=== PATIENT | male | born 1965 | race Caucasian/White ===

== ENCOUNTER 2022-07-20 08:39 | Day surgery (SDC) | payer MEDICARE, MEDICAID, SELFPAY ==
--- NOTE | 2022-07-19 14:17 | HO.ANESPROP2 ---
Documented by User: Darcy Lujan NP 07/19/22 14:18 HPI - Anesthesia Eval Consult details Narrative: 57yo M for Colonoscopy PMFSH Past Medical History Medical History Cerebral palsy Chronic constipation Hydrocephalus Intellectual disability Scoliosis Urine incontinence VJ (ventriculojugular) shunt status Surgical History Surgical History (Updated 07/20/22 @ 10:54 by Amparo Vidal MD) H/O colonoscopy History of surgery Social History Social History Patient Tobacco Use Status: Never used Tobacco Use of substances other than those prescribed or required for medical reasons: No Are you DNR?: No Advance Directives: No Advance Directives Information Provided: Yes Meds Allergies Allergy/AdvReac Type Severity Reaction Status Date / Time cranberry Allergy Unknown Unknown Verified 07/19/22 14:18 Home Medications Medication Instructions Recorded Confirmed Last Taken Type acetaminophen 500 mg tablet mg PO 07/20/22 Unknown History acetic acid 2 % ear solution otic (ears) 07/20/22 Unknown History betamethasone dipropionate 0.05 % 1 applic topical BID 07/20/22 Unknown History topical cream betamethasone dipropionate 0.05 % 1 applic topical BID 07/20/22 Unknown History topical cream cetirizine 10 mg tablet 1 tab PO DAILY 07/20/22 07/20/22 History diazepam 10 mg tablet 1 tab PO DAILY PRN Anxiety 07/20/22 Unknown History diphenhydramine HCl 25 mg capsule mg PO 07/20/22 Unknown History (Banophen) docusate sodium 100 mg capsule mg PO 07/20/22 Unknown History fluocinolone 0.01 % topical topical 07/20/22 Unknown History solution fluticasone propionate 50 spray intranasal 07/20/22 07/20/22 History mcg/actuation nasal spray,suspension hydrocortisone 2.5 % topical cream applic topical 07/20/22 Unknown History with perineal applicator magnesium hydroxide 400 mg/5 mL ml PO 07/20/22 Unknown History oral suspension (Milk of Magnesia) omeprazole 20 mg capsule,delayed 1 cap PO DAILY 07/20/22 07/20/22 History release peg 3350 240 gram-electrolytes ml PO 07/20/22 Unknown History 22.72 gram-6.72 g-5.84 g powdr for soln (Gavilyte-C) sennosides 8.6 mg tablet (senna) 2 tab PO DAILY 07/20/22 Unknown History Exam Exam Date and Time: July 19, 2022 1417 Assessment and Plan Assessment Anesthesia Assessment: Chart Reviewed Documented by User: Amparo Vidal MD 07/20/22 11:38 PMFSH Past Medical History Medical History Cerebral palsy Chronic constipation Hydrocephalus Intellectual disability Scoliosis Urine incontinence VJ (ventriculojugular) shunt status Family History Family history of problems with anesthesia: No Surgical History Surgical History (Updated 07/20/22 @ 10:54 by Amparo Vidal MD) H/O colonoscopy History of surgery History of Problems with Anesthesia: No Social History Social History Patient Tobacco Use Status: Never used Tobacco Use of substances other than those prescribed or required for medical reasons: No Are you DNR?: No Advance Directives: No Advance Directives Information Provided: Yes Meds Allergies Allergy/AdvReac Type Severity Reaction Status Date / Time cranberry Allergy Unknown Unknown Verified 07/19/22 14:18 Home Medications Medication Instructions Recorded Confirmed Last Taken Type acetaminophen 500 mg tablet mg PO 07/20/22 Unknown History acetic acid 2 % ear solution otic (ears) 07/20/22 Unknown History betamethasone dipropionate 0.05 % 1 applic topical BID 07/20/22 Unknown History topical cream betamethasone dipropionate 0.05 % 1 applic topical BID 07/20/22 Unknown History topical cream cetirizine 10 mg tablet 1 tab PO DAILY 07/20/22 07/20/22 History diazepam 10 mg tablet 1 tab PO DAILY PRN Anxiety 07/20/22 Unknown History diphenhydramine HCl 25 mg capsule mg PO 07/20/22 Unknown History (Banophen) docusate sodium 100 mg capsule mg PO 07/20/22 Unknown History fluocinolone 0.01 % topical topical 07/20/22 Unknown History solution fluticasone propionate 50 spray intranasal 07/20/22 07/20/22 History mcg/actuation nasal spray,suspension hydrocortisone 2.5 % topical cream applic topical 07/20/22 Unknown History with perineal applicator magnesium hydroxide 400 mg/5 mL ml PO 07/20/22 Unknown History oral suspension (Milk of Magnesia) omeprazole 20 mg capsule,delayed 1 cap PO DAILY 07/20/22 07/20/22 History release peg 3350 240 gram-electrolytes ml PO 07/20/22 Unknown History 22.72 gram-6.72 g-5.84 g powdr for soln (Gavilyte-C) sennosides 8.6 mg tablet (senna) 2 tab PO DAILY 07/20/22 Unknown History Exam Height,Weight and Vital Signs: Height 5 ft Weight 75.296 kg Vital Signs Temp Pulse Resp BP Pulse Ox O2 Del Method 07/20/22 10:07 97.0 F 67 16 143/85 H 95 Room Air Narrative Narrative: Unable to assess airway. Patient will not open mouth Airway TM Dist: >3cm (Short fat neck) Heart: RRR Lungs: CTAB Assessment and Plan Assessment Anesthesia Assessment: Anesthesia Plan Discussed (Plan discussed with patient's sister(HCP)) Final Anesthetic Review Family History of Problems with Anesthesia: No History of Problems with Anesthesia: No NPO: Yes ASA Class: III Final Preanesthetic Review: No Changes in Pt Med Stat, Meds/Allgs Chart Reviewed, Consent Obtained/Reviewed and Anes Risks/Benef Reviewed Patient Risk: Intermediate Procedure Risk: Low Assessment/Block/Sedation in SS: Assess/Block/Sedation-SS Anesthetic Plan Anesthetic Plan: MAC: Disposition: Standard PACU
[2022-07-20 09:51] VITALS: BMI 32.4
[2022-07-20 10:07] VITALS: BP 143/85; PULSE 67; RESP 16; TEMP 36.1; O2SAT 95
[2022-07-20] MEDS: Lactated Ringers 1,000 ML 100 ML IVCONT (10:32)
--- NOTE | 2022-07-20 10:45 | MHC.SHP ---
Pre-Procedural Eval Section A Date of Service: 07/20/22 The patient is an INPATIENT: No Changes since office visit: No Cold of Flu in the past 2 weeks, No New Medical Problems, No Changes in Medication and No Patient answered all questions The History & Physical has been completed within 30 days and I have reviewed it.: Yes Section B Chief Complaint: Encounter for screening for malignant neoplasm of Allergies: Allergies Allergy/AdvReac Type Severity Reaction Status Date / Time cranberry Allergy Unknown Unknown Verified 07/19/22 14:18 Plan I have reviewed the history and physical and performed a pertinent physical examination on my patient. No changes have occurred unless specified.
[2022-07-20 11:52] VITALS: BP 93/61; PULSE 71; RESP 18; TEMP 36.4; O2SAT 97
--- NOTE | 2022-07-20 11:52 | P.BOP_ITS ---
Brief Operative Note Date of Service: 07/20/22 Pre-op diagnosis: screening Post-op diagnosis: same Procedure: colonoscopy Surgeon: Donald Moreland Anesthesia: MAC Was an [employer] used for this Procedure?: No Estimated blood loss (mL): 5 Pathology: other Condition: stable Disposition: PACU
[2022-07-20 12:07] VITALS: BP 105/74; PULSE 59; RESP 18; TEMP 36.4; O2SAT 92
--- NOTE | 2022-07-20 12:20 | OP_ITS ---
SURGEON: Donald Moreland MD INDICATIONS: Colon cancer screening and prior history of adenomatous colon polyps. PREOPERATIVE DIAGNOSIS: POSTOPERATIVE DIAGNOSIS: PROCEDURE PERFORMED: Colonoscopy to the right colon with biopsy. ESTIMATED BLOOD LOSS: COMPLICATIONS: ANESTHESIA: Monitored anesthesia care. ASSISTANTS: SPECIMENS: DESCRIPTION OF PROCEDURE: The procedure was performed on 07/20/2022. History and physical performed. The risks and benefits of the procedure were explained to the patient's sister and informed consent was obtained. The patient was placed in the left lateral decubitus position. A digital rectal exam was performed and was found to be normal. The Olympus pediatric video colonoscope was introduced into the rectum and advanced to the right colon where further advancement was not possible due to looping in the colon and redundant sigmoid. Despite the application of abdominal wall pressure, examination was performed, the scope was removed. He tolerated the procedure well and was returned to the recovery area in stable condition. It is estimated that 80% of the colon was examined. FINDINGS: There was a large amount of liquid stool limiting the sensitivity examination for detection of small polyps. This was washed and suctioned as best possible. A single polyp measuring less than 5 mm was identified in the rectum at 15 cm, removed with the biopsy forceps. No other polyps were identified. Retroflexed examination showed moderately large internal hemorrhoids. IMPRESSION: Colon polyp. RECOMMENDATION: 1. Follow up the biopsy results. 2. Consider outpatient barium enema for further evaluation of the unexamined colon. This will be discussed with the patient's guardian. MD GILLIAN Jose/AMMY / [phone]
[2022-07-20 12:22] VITALS: BP 104/80; PULSE 59; RESP 18; TEMP 36.4; O2SAT 93
--- NOTE | 2022-07-20 12:28 | PC.NURSE ---
new IV started upon arrival to PACU by Carol Davies RN. Dr. Tolentino stated to bolus patient with fluids until BP improves. Pt received 300 ML LR by this time and good response with BP see documentation in VS intervention.
[2022-07-20 12:39] VITALS: BP 104/80; PULSE 63; RESP 18; TEMP 36.4; O2SAT 98
--- NOTE | 2022-07-20 13:51 | PC.NURSE ---
Caregiver, Linda, from [facility] with patient after procedure. reviewed all findings from procedure and f/u as instructed by dr. morales. She verbalized understanding.
== END 2022-07-20 13:30 | disposition home or self-care (01) ==
PROVIDERS: PCP Family Medicine; Visit Provider Internal Medicine Gastroenterology
PROC: 0DJD8ZZ Inspection of Lower Intestinal Tract, Via Natural or Artificial Opening Endoscopic (ICD-10-PCS; CPT 45378; principal; 2022-07-20 09:50)
DX: Z12.11 Encounter for screening for malignant neoplasm of colon (principal); Z86.010 Personal history of colon polyps; Z83.71 Family history of colonic polyps; K62.1 Rectal polyp; K64.8 Other hemorrhoids; K59.09 Other constipation; G80.9 Cerebral palsy, unspecified; G91.9 Hydrocephalus, unspecified; Z98.2 Presence of cerebrospinal fluid drainage device; F79 Unspecified intellectual disabilities; R32 Unspecified urinary incontinence; M41.9 Scoliosis, unspecified; Z79.51 Long term (current) use of inhaled steroids; Z79.899 Other long term (current) drug therapy
CPT/HCPCS: 45380; 88305